=== PATIENT | female | born 1980 | race Two or more races ===

== ENCOUNTER 2017-10-12 09:33 | Emergency (ER) | payer BC ==
[~2017-10-12] VITALS: Ht 160 cm; Wt 65.0 kg
[2017-10-12] MEDS ORDERED: IBUPROFEN 600 MG TABLET PO ONE (10:30)
[2017-10-12 10:38] VITALS: BP 109/70
== END 2017-10-12 11:20 | disposition home or self-care (01) ==
LOC: EMS 09:34
DX: S82.61XA Displaced fracture of lateral malleolus of right fibula, initial encounter for closed fracture (principal); Z88.0 Allergy status to penicillin; W10.2XXA Fall (on)(from) incline, initial encounter; Y93.89 Activity, other specified; Y92.89 Other specified places as the place of occurrence of the external cause; Y99.8 Other external cause status
CPT/HCPCS: 99284